=== PATIENT | male | born 1970 | race African-American/Black ===

== ENCOUNTER 2023-05-24 06:54 | Emergency (ER) | payer BC ==
[~2023-05-24] VITALS: Ht 182.9 cm; Wt 105.0 kg
[2023-05-24 07:25] VITALS: BP 132/70; TEMP 98.2; O2SAT 99
[2023-05-24 08:01] VITALS: PULSE 55; RESP 16
== END 2023-05-24 09:41 | disposition left against medical advice (07) ==
LOC: ER 06:54
DX: K62.5 Hemorrhage of anus and rectum (principal); E11.9 Type 2 diabetes mellitus without complications; I10 Essential (primary) hypertension; Z96.653 Presence of artificial knee joint, bilateral; Z98.890 Other specified postprocedural states
CPT/HCPCS: 99281